=== PATIENT | male | born 2000 | race Caucasian/White ===

== ENCOUNTER 2023-09-28 08:40 | Emergency (ER) | payer SELFPAY ==
[2023-09-28 09:07] VITALS: BP 130/81; PULSE 82; RESP 17; TEMP 99.8; BMI 26.8
== END 2023-09-28 10:37 | disposition home or self-care (01) ==
LOC: FER 08:40
DX: R21 Rash and other nonspecific skin eruption (principal); B01.9 Varicella without complication; Z20.822 Contact with and (suspected) exposure to COVID-19
CPT/HCPCS: 0241U-QW; 36415; 86765; 86787; 87798; 99283-25